=== PATIENT | male | born 1960 | race Caucasian/White ===

== ENCOUNTER 2016-08-29 08:00 | Emergency (ER) | payer OTHER ==
[~2016-08-29] VITALS: Ht 177.8 cm; Wt 105.7 kg
[2016-08-29 08:07] VITALS: BP 168/82
[2016-08-29] MEDS ORDERED: DOXYCYCLINE HY100 M4 PO (08:35)
[2016-08-29] MEDS ORDERED: TESSALON PERLE100 M1 PO (08:50)
[2016-08-29] MEDS ORDERED: MEDROL4 M2 PO (08:50)
--- NOTE | 2016-08-29 08:52 | ED INFLUENZA/URI COMPLAINT ---
History of Present Illness General Chief Complaint: Upper Respiratory Sx/Fever Stated Complaint: CONGESTION, COUGH Source: patient Exam Limitations: no limitations Vital Signs & Intake/Output Vital Signs & Intake/Output Vital Signs Date Time Temp Pulse Resp B/P Pulse O2 O2 Flow FiO2 Ox Delivery Rate 08/29 0807 98.1 92 18 168/82 98 Room Air Allergies Coded Allergies: No Known Allergies (08/29/16) Reconcile Medications Benzonatate (Tessalon Perle) 100 MG CAPSULE 1 CAP PO TID PRN COUGH Doxycycline Hyclate 100 MG TABLET 1 TAB PO BID ANTIBIOTIC, INFECTION ( Reported) Methylprednisolone. (Medrol) 4 MG TAB.DS.PK 1 DP PO AD INFLAMMATION 6 on day 1 then reduce by one tablet daily until gone Triage Note: STATES THAT HE HAS HAD URI SYMPTOMS FOR 2 DAYS WITH POST NASAL DRIP, WENT TO WALK IN ON MONDAY AND DIAGNOSED WITH SINUS INFECTION AND STARTED ON ABT. STATES THAT THEY ARE NOT WORKING. Triage Nurses Notes Reviewed? yes Onset: Gradual Duration: constant Timing: recent history Severity: moderate Severity Numbers: 5 Prior Episodes/Possible Cause: occassional episodes HPI: Patient is a 55-year-old male who presents emergency room saying that he just returned on a flight on Monday and began having symptoms of head congestion sinus pressure sore throat cough it was patient was evaluated at an urgent care facility on Monday 2 days ago was given doxycycline and Nasonex which patient has been compliant with medications however he feels no better. he states that earlier this fall he had similar sick contacts after an airplane ride and was given antibiotics which improved his symptoms after 10 days. Cough is nonproductive. Denies any chest pain arm pain jaw pain nausea vomiting rash headache neck pain neck stiffness (SAW JALLOH) Past History Travel History Traveled to [place] past 21 day No Medical History Any Pertinent Medical History? none Neurological: NONE EENT: NONE Cardiovascular: NONE Respiratory: NONE Gastrointestinal: NONE Hepatic: NONE Renal: NONE Musculoskeletal: NONE Psychiatric: NONE Endocrine: NONE Blood Disorders: NONE Cancer(s): NONE CAREER RESOURCE TECHNICIAN/Reproductive: NONE Surgical History Surgical History: non-contributory Psychosocial History What is your primary language Divehi Tobacco Use: Never used ETOH Use: denies use Illicit Drug Use: denies illicit drug use Family History Hx Contributory? No (SAW JALLOH) Review of Systems Review of Systems Constitutional: Reports: see HPI. Denies: chills, fever. EENTM: Reports: nasal congestion, throat pain. Respiratory: Reports: see HPI, cough. Cardiovascular: Denies: chest pain. GI: Reports: no symptoms. Genitourinary: Reports: no symptoms. Musculoskeletal: Reports: no symptoms. Skin: Reports: no symptoms. Neurological/Psychological: Reports: no symptoms. Hematologic/Endocrine: Reports: no symptoms. Immunologic/Allergic: Reports: no symptoms. All Other Systems: Reviewed and Negative (SAW JALLOH) Physical Exam Physical Exam General Appearance: no apparent distress, alert Ears, Nose, Throat: nasal congestion, nasal drainage, PHARYNX ERYTHEMATOUS NO TONSILLAR EXUDATES NO SWELLING Comments: Well-developed well-nourished person in no acute distress HEENT: extraocular motion intact, no nystagmus. Pupils equally round and reactive to light and accommodation. Nose is atraumatic. External auditory canal and Tympanic membranes clear. Pharynx- No swelling or edema. Neck: Supple, no lymphadenopathy, normal range of motion without pain or tenderness Back: Nontender, no CVA tenderness Cardiovascular: Regular rate and rhythms no murmurs rubs or gallops, normal JVP Respiratory: Chest nontender. No respiratory distress.breath sounds clear to auscultation bilaterally Abdomen: Soft, nontender nondistended, no appreciable organomegaly. Normal bowel sounds. No ascites Extremity: No edema, no calf tenderness to palpation, normal and equal pulses. Neuro: Alert oriented x3, motor sensory normal, Skin: No appreciable rash on exposed skin, skin is warm and dry. Psych: Mood and affect is normal, memory and judgment is normal. Core Measures Severe Sepsis Present: No Septic Shock Present: No (SAW JALLOH) Progress Differential Diagnosis: influenza, meningitis, neutropenia, otitis, pneumonia, pharyngitis, sinusitis Plan of Care: Orders Procedure Date/time Status THROAT CULTURE W/QUICK STREP 08/29 0810 Active No meningitis signs or symptoms. Patient looks well and nontoxic appearing afebrile Rapid strep was negative culture pending patient is currently on doxycycline I discussed patient discharge instructions in which he had no questions and will follow and comply. (SAW JALLOH) Initial ED EKG: none (SAW JALLOH) Departure Departure Disposition: HOME OR SELF CARE Condition: Stable Clinical Impression Primary Impression: Pharyngitis Secondary Impressions: Upper respiratory infection Referrals: MAO SMITH,DANIEL Armstrong (PCP/Family) Additional Instructions: As discussed begin the prescription of Tessalon Perles for cough, Medrol Dosepak for inflammation, and Magic mouthwash for sore throat. Continue medications previously prescribed of doxycycline and Nasonex. If no better in 2 days follow -up with primary care doctor. If symptoms worsen or if you develop a new concerning symptom return to emergency room. Departure Forms: Customer Survey General Discharge Information Prescriptions: Current Visit Scripts Benzonatate (Tessalon Perle) 1 CAP PO TID PRN COUGH #21 CAP Methylprednisolone. (Medrol) 1 DP PO AD #1 DP 6 on day 1 then reduce by one tablet daily until gone (SAW JALLOH) PA/VACUUM DRUM DRIER OPERATOR Co-Sign Statement Statement: ED Attending supervision documentation- [] I saw and evaluated the patient. I have also reviewed all the pertinent lab results and diagnostic results. I agree with the findings and the plan of care as documented in the PA's/VACUUM DRUM DRIER OPERATOR's documentation. [X] I have reviewed the ED Record and agree with the PA's/VACUUM DRUM DRIER OPERATOR's documentation. [] Additions or exceptions (if any) to the PAs/VACUUM DRUM DRIER OPERATOR's note and plan are summarized below: [] (TILA NUNEZ DO)
== END 2016-08-29 09:07 ==
LOC: ERH 08:00
DX: J02.9 Acute pharyngitis, unspecified (principal); J06.9 Acute upper respiratory infection, unspecified